=== PATIENT | female | born 1980 ===

== ENCOUNTER 2017-01-15 12:45 | Observation (INO) | payer OTHER ==
[2017-01-15] MEDS ORDERED: Sodium Chloride 0.9% 1,000 ML IV STA (13:27)
--- NOTE | 2017-01-15 13:27 | ED PDOC ---
HPI: Hypertension/Hypotension Time Seen by Provider: 01/15/17 13:16 Chief Complaint (Nursing): High Blood Pressure Chief Complaint (Provider): high blood pressure History Per: Patient Additional Complaint(s): 36 year old with history of hypertension presents to ED with headache and elevated BP over the past few days. Patient states she takes a combination tablet of 20 mg lisinopril and 25 mg HCTZ daily. She states she does not skip doses and took her dose today. Patient has had intermittent palpitations and nausea since yesterday as well. She denies chest pain or SOB upon arrival and states she has a headache that she rates as 5/10. Denies any vision changes. Past Medical History Reviewed: Historical Data, Nursing Documentation, Vital Signs Vital Signs: Last Vital Signs Temp 98.0 F 01/15/17 13:00 Pulse 90 01/15/17 13:00 Resp 18 01/15/17 13:00 BP 179/112 H 01/15/17 13:00 Pulse Ox 99 01/15/17 13:00 - Medical History PMH: HTN - Surgical History Surgical History: (x 1) Other surgeries: ovarian cyst removal - Family History Family History: States: No Known Family Hx - Living Arrangements Living Arrangements: With Family - Social History Current smoker - smoking cessation education provided: No Alcohol: None Drugs: Denies - Home Medications Home Medications: Ambulatory Orders Medication Instructions Recorded Lisinopril [Zestril] 20 mg PO DAILY 01/15/17 - Allergies Allergies/Adverse Reactions: Allergies Allergy/AdvReac Type Severity Reaction Status Date / Time Penicillins Allergy RASH Verified 01/15/17 12:59 Review of Systems ROS Statement: Except As Marked, All Systems Reviewed And Found Negative Constitutional: Negative for: Fever Cardiovascular: Positive for: Palpitations. Negative for: Chest Pain Gastrointestinal: Positive for: Nausea. Negative for: Vomiting Neurological: Positive for: Headache. Negative for: Dizziness Physical Exam - Reviewed Nursing Documentation Reviewed: Yes Vital Signs Reviewed: Yes - Physical Exam Appears: Positive for: Well, Non-toxic, No Acute Distress Skin: Negative for: Rash Eye Exam: Positive for: Normal appearance, EOMI, PERRL Cardiovascular/Chest: Positive for: Regular Rate, Rhythm Respiratory: Positive for: Normal Breath Sounds Extremity: Negative for: Pedal Edema Neurologic/Psych: Positive for: Alert, Oriented - Laboratory Results Result Diagrams: 01/15/17 13:39 01/15/17 13:39 Urine POC: Negative - ECG Interpretation Of ECG: NSR 87 bpm, no acute finding O2 Sat by Pulse Oximetry: 99 Pulse Ox Interpretation: Normal - Other Rad Bedside chest X-Ray: Interpreted by Me, Viewed By Me X-Ray Interpretation: no acute finding Medical Decision Making Medical Decision Makin36 year old with hypertension BP upon arrival: 179/112, repeat 165/123 Plan: PO Norvasc 10 mg tab CBC CMP Trop EKG CXR IVF PO tylenol Admit to ED observation. ED OBSERVATION Date of observation admission: 01/15/17 Time of observation admission: 14:53 - Observation admission statement Patient is being placed in observation because:: Hypertension - Goals of Observation Goals of observation are:: Monitor BP, HTN work up pending - Progress Note Progress Note: 01/15/17 15:59 Repeat BP 40 minutes after Norvasc dose is still very elevated at 172/105, 20 mg IV labetalol given. 01/15/17 16:18 Case was d/w Dr. Gorman, community [facility] resident. Patient will be admitted to obs-tele for persistent HTN and palpitations. Patient is aware of and agrees with admission. Disposition - Clinical Impression Clinical Impression: Hypertension, Palpitations - Patient ED Disposition Is Patient to be Admitted: Yes - Disposition Disposition Time: 16:19 Condition: FAIR - Pt Status Changed To: Hospital Disposition Of: Observation - POA Present On Arrival: None Results - Lab Results Lab Results: 01/15/17 01/15/17 13:39 13:39 WBC 10.7 RBC 4.72 Hgb 11.4 L Hct 36.3 MCV 76.8 L MCH 24.1 L MCHC 31.3 L RDW 15.9 H Plt Count 151 MPV 11.5 Neut % (Auto) 72.0 Lymph % (Auto) 19.2 L [place] % (Auto) 6.7 Eos % (Auto) 1.3 Baso % (Auto) 0.8 Neut # 7.7 H Lymph # 2.1 [place] # 0.7 Eos # 0.1 Baso # 0.1 Sodium 139 Potassium 3.3 L Chloride 106 Carbon Dioxide 22 Anion Gap 14 BUN 11 Creatinine 0.7 Est GFR ( Amer) > 60 Est GFR (Non-Af Amer) > 60 Random Glucose 103 Calcium 9.5 Total Bilirubin 0.3 AST 22 ALT 39 Alkaline Phosphatase 90 Troponin I < 0.0120 Total Protein 7.8 Albumin 4.5 Globulin 3.3 Albumin/Globulin Ratio 1.4
[2017-01-15 13:54] LABS: BASO # 0.1 K/uL (0.0-0.2); BASO % 0.8 % (0.0-2.0); EOS # 0.1 K/uL (0.0-0.7); EOS % 1.3 % (0.0-4.0); HEMATOCRIT 36.3 % (34.0-47.0); LYMPH # 2.1 K/uL (1.0-4.3); LYMPH % 19.2 % (20.0-40.0); MEAN CELL VOLUME 76.8 fl (81.0-99.0); MEAN CORPUSCULAR HEMOGLOBIN 24.1 pg (27.0-31.0); MEAN CORPUSCULAR HGB CONC 31.3 g/dL (33.0-37.0); MEAN PLATELET VOLUME 11.5 fl (7.2-11.7); MONO # 0.7 K/uL (0.0-0.8); MONO % 6.7 % (0.0-10.0); NEUT # 7.7 K/uL (1.8-7.0); RED CELL DISTRIBUTION WIDTH 15.9 % (11.5-14.5); WHITE BLOOD COUNT 10.7 K/uL (4.8-10.8)
[2017-01-15 13:56] LABS: ALB/GLOB RATIO 1.4 (1.0-2.1); ALKALINE PHOSPHATASE 90 U/L (38-126); ALT/SGPT 39 U/L (9-52); AST/SGOT 22 U/L (14-36); BILIRUBIN,TOTAL 0.3 mg/dl (0.2-1.3); BLOOD UREA NITROGEN 11 mg/dl (7-17); CALCIUM 9.5 mg/dL (8.4-10.2); CARBON DIOXIDE 22 mmol/L (22-30); CHLORIDE 106 mmol/L (98-107); GFR AFRICAN-AMERICAN > 60; GLUCOSE,RANDOM 103 mg/dL (65-105); POTASSIUM 3.3 MMOL/L (3.6-5.0); SODIUM 139 mmol/l (132-148); TOTAL PROTEIN 7.8 G/DL (6.3-8.2)
--- NOTE | 2017-01-15 15:11 | RAD ---
HISTORY: clearance COMPARISON: No prior. FINDINGS: LUNGS: No active pulmonary disease. PLEURA: No significant pleural effusion identified, no pneumothorax apparent. CARDIOVASCULAR: Normal. OSSEOUS STRUCTURES: No significant abnormalities. VISUALIZED UPPER ABDOMEN: Normal. OTHER FINDINGS: None. IMPRESSION: No active disease.
[2017-01-15] MEDS ORDERED: Labetalol 5mg/ml (4ml) IV STA (16:00)
[2017-01-15] MEDS ORDERED: Labetalol 5mg/ml (4ml) ONE (16:39)
[2017-01-15] MEDS ORDERED: Potassium Chloride 20 mEq ER Tab PO STA (16:55)
--- NOTE | 2017-01-15 17:14 | CP.PCM.HP ---
History of Present Illness - History of Present Illness History of Present Illness: CC/HPI: 36 yo female with PMhx of HTN presents with a headache that began last night and has been getting progressively worse. 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 She walked 10min unassisted to the ED to be evaluated. The headache is localized to the left frontal and parietal lobes, pounding and associated with [place] w/o vomiting. The patient described the headache as severe and has never had this type of headache before. On ROS, pt denies blurry vision, weakness, CP, hematuria, SOB, or abdominal pain. 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 Allergies: penicillin Home meds: Hyzaar PMD: [facility] Ed Course: CMP K3.2 CBC H/H 11.4/36.3, MCV 76 ECG NSR Meds: K-dur 20 Norvasc 10 PO Labetolol 20 IV Tylenol 325mg NS 1000ml Present on Admission - Present on Admission Any Indicators Present on Admission: No History of DVT/PE: No History of Uncontrolled Diabetes: No Urinary Catheter: No Decubitus Ulcer Present: No History Surgical Site Infection Following: None Review of Systems - Review of Systems Review of Systems: See HPI Past Patient History - Past Social History Alcohol: None Drugs: Denies - CARDIAC Hx Hypertension: Yes - PULMONARY Hx Respiratory Disorders: No - GENITOURINARY/GYNECOLOGICAL Hx Genitourinary Disorders: Yes (cyst) - PSYCHIATRIC Hx Substance Use: Yes - SURGICAL HISTORY Hx Section: Yes Other/Comment: cyst removal - ANESTHESIA Hx Anesthesia: Yes Hx Anesthesia Reactions: No Meds Allergies/Adverse Reactions: Allergies Allergy/AdvReac Type Severity Reaction Status Date / Time Penicillins Allergy RASH Verified 01/15/17 12:59 Physical Exam - Constitutional Appears: Well, No Acute Distress - Head Exam Head Exam: ATRAUMATIC - Eye Exam Eye Exam: Conjunctival injection, EOMI, PERRL Pupil Exam: PERRL - ENT Exam ENT Exam: Mucous Membranes Moist - Neck Exam Neck exam: Negative for: Thyromegaly - Respiratory Exam Respiratory Exam: Clear to Auscultation Bilateral. absent: Accessory Muscle Use - Cardiovascular Exam Cardiovascular Exam: REGULAR RHYTHM, +S1, +S2. absent: JVD, Systolic Murmur - GI/Abdominal Exam GI & Abdominal Exam: Normal Bowel Sounds. absent: Organomegaly, Rigid, Tenderness - Neurological Exam Neurological exam: Alert, Oriented x3 Additional comments: No motor or sensory deficits of upper and lower extremities - Psychiatric Exam Psychiatric exam: Normal Affect Results - Vital Signs Recent Vital Signs: Last Vital Signs Temp 98.0 F 01/15/17 13:00 Pulse 84 01/15/17 16:48 Resp 18 01/15/17 16:48 BP 166/111 H 01/15/17 16:48 Pulse Ox 99 01/15/17 17:00 - Labs Result Diagrams: 01/15/17 13:39 01/15/17 13:39 Assessment & Plan - Assessment and Plan (Free Text) Assessment: 36 yo female presents with an acute onset of a severe headache with BP systolic 170s and diastolic 110's. Assessment: 1) Hypertensive Urgency ECG NSR CT head (w/o contrast)= pending Troponin negative x1 Lisinipril 20 po daily HTZ 25mg po daily Amlodipine 5mg PO Admit to Tele 2) Microcytic Anemia Repeat CBC Order TIBC Ferritin tomorrow 3) Hypokalemia K- 3.1 F/u CBC 4) Diet Heart Healthy 5) DVT PPX SCD
--- NOTE | 2017-01-15 18:11 | CT ---
PROCEDURE: CT HEAD WITHOUT CONTRAST. HISTORY: headache COMPARISON: None available. TECHNIQUE: Axial computed tomography images were obtained through the head/brain without intravenous contrast. Radiation dose: Total exam DLP = 841.98 mGy-cm. This CT exam was performed using one or more of the following dose reduction techniques: Automated exposure control, adjustment of the mA and/or kV according to patient size, and/or use of iterative reconstruction technique. FINDINGS: HEMORRHAGE: No intracranial hemorrhage. BRAIN: No mass effect or edema. No atrophy or chronic microvascular ischemic changes. Please note that MRI with diffusion imaging is more sensitive in the detection of acute ischemic event. VENTRICLES: No hydrocephalus. CALVARIUM: Unremarkable. PARANASAL SINUSES: Unremarkable as visualized. No significant inflammatory changes. MASTOID AIR CELLS: Unremarkable as visualized. No inflammatory changes. OTHER FINDINGS: None. IMPRESSION: No acute intracranial pathology identified.
[2017-01-15 20:00] VITALS: O2SAT 99
[2017-01-15] MEDS ORDERED: Potassium Chloride 20 mEq ER Tab PO ONE (20:12)
[2017-01-16 03:00] LABS: RBC URINE 1 /hpf (0-3); URINE BILIRUBIN NEGATIVE (NEGATIVE); URINE BLOOD NEGATIVE (NEGATIVE); URINE COLOR COLORLESS (YELLOW); URINE GLUCOSE (UA) NEG (Normal); URINE KETONE NEGATIVE (NEGATIVE); URINE LEUKOCYTE ESTERASE NEG Leu/uL (Negative); URINE PROTEIN NEGATIVE (NEGATIVE); URINE UROBILINOGEN 0.2-1.0 mg/dL (0.2-1.0); WBC URINE 1 /hpf (0-5)
[2017-01-16 05:47] LABS: IRON 38 ug/dL (37-170)
[2017-01-16 06:41] VITALS: TEMP 98.3
[2017-01-16 09:21] VITALS: BP 140/97; PULSE 85; RESP 15
--- NOTE | 2017-01-16 18:02 | CARD ---
APPROVED REPORT EKG Measurement Heart [id number] <Conclusion> Normal sinus rhythm Nonspecific T wave abnormality Abnormal ECG
== END 2017-01-16 14:00 | disposition home or self-care (01) ==
LOC: H.ER 12:45 → H.EROBSV 14:53 → H.ERHOLD 17:50 → H.ICU/CCU 21:05
PROVIDERS: ADMIT Family Medicine Geriatric Medicine; ATTEND Family Medicine Geriatric Medicine
DX: I16.0 Hypertensive urgency (principal); E87.6 Hypokalemia; D50.9 Iron deficiency anemia, unspecified; R00.2 Palpitations; Z88.0 Allergy status to penicillin